=== PATIENT | female | born 1975 | race Caucasian/White ===

== ENCOUNTER 2021-03-05 12:12 | Inpatient (IN) | payer OTHER ==
[~2021-03-05] VITALS: Ht 160 cm; Wt 78.5 kg
[~2021-03-05 12:12] MED LIST: AMLODIPINE BESYL5 MG PO; ASPIRIN EC81 MG PO; ASPIRIN325 MG PO; BASAGLAR K100 UNIT/1 SC; CATAPRES 0.1MG0.1 MG PO; CEFUROXIME250 MG PO; CLEOCIN HCL300 MG PO; DULOXETINE HCL30 MG PO; FERROUS GLUCON324 M1 PO; GABAPENTIN800 MG PO; HUMALOG 10100 UNITS/ SC; HUMALOG100 UNIT/1 SC; HUMALOG100 UNIT/1 SQ; KLONOPIN TAB 00.5 MG PO; LANTUS INS100 UTS/M1 SC; LEVAQUIN750 MG PO; LISINOPRIL2.5 MG PO; LISINOPRIL40 MG PO; LOVENOX40 MG/0.4 SQ; LYRICA150 MG PO; METHADONE HCL T10 MG PO; MS CONTIN TAB S15 MG PO; NEURONTIN 400400 MG PO; NORCO 7.5-3251 EACH PO; OXYCODONE HCL5 MG PO; PERCOCET 10-321 EACH PO; PERCOCET 5/325 T1 EA PO; PHENERGAN 25 MG25 M1 PO; POVIDONE-IOD28.35 GM TOP; PROTONIX 40 MG40 M1 PO; PROTONIX40 MG PO; ROCEPHIN IM/I2000 MG IV; TIZANIDINE HCL4 MG PO; VANCOMYCIN HCL1 GM IV; VANCOMYCIN2 GM/20 ML IV; ZANAFLEX 4 MG TA4 MG PO; ZESTRIL40 MG PO; ZYVOX600 MG PO
[2021-03-05 13:55] LABS: HEMOGLOBIN 12.7 gm/dl (12.3-15.3); RED BLOOD COUNT 4.63 M/UL (4.00-5.10); WHITE BLOOD COUNT 10.1 K/UL (4.5-11.0)
[2021-03-05 14:03] LABS: BUN/CREATININE RATIO 14 (0-10)
[2021-03-06] MEDS ORDERED: LYRICA300 MG PO (00:39)
[2021-03-06] MEDS ORDERED: KLONOPIN0.5 MG PO (00:40)
[2021-03-06] MEDS ORDERED: AMLODIPINE BESYL5 MG PO (07:06)
[2021-03-06] MEDS ORDERED: ATORVASTATIN CA10 MG PO (07:06)
[2021-03-06] MEDS ORDERED: HYDROXYZINE PAM25 MG PO (07:07)
[2021-03-06 07:19] LABS: HEMOGLOBIN 10.3 gm/dl (12.3-15.3); RED BLOOD COUNT 3.81 M/UL (4.00-5.10); WHITE BLOOD COUNT 6.6 K/UL (4.5-11.0)
[2021-03-06 07:43] LABS: BUN/CREATININE RATIO 16 (0-10)
[2021-03-07 06:33] LABS: HEMOGLOBIN 10.9 gm/dl (12.3-15.3); WHITE BLOOD COUNT 6.5 K/UL (4.5-11.0)
[2021-03-07 06:51] LABS: BUN/CREATININE RATIO 23 (0-10)
[2021-03-08 08:55] LABS: HEMOGLOBIN 10.9 gm/dl (12.3-15.3); RED BLOOD COUNT 3.99 M/UL (4.00-5.10)
[2021-03-08 09:12] LABS: BUN/CREATININE RATIO 21 (0-10)
[2021-03-09 06:50] LABS: HEMOGLOBIN 11.8 gm/dl (12.3-15.3); RED BLOOD COUNT 4.33 M/UL (4.00-5.10); WHITE BLOOD COUNT 7.5 K/UL (4.5-11.0)
[2021-03-09 06:57] LABS: BUN/CREATININE RATIO 20 (0-10)
[2021-03-10 06:40] LABS: HEMOGLOBIN 12.1 gm/dl (12.3-15.3); RED BLOOD COUNT 4.42 M/UL (4.00-5.10)
[2021-03-10 06:52] LABS: WHITE BLOOD COUNT 9.4 K/UL (4.5-11.0)
[2021-03-10 07:06] LABS: BUN/CREATININE RATIO 21 (0-10)
[2021-03-10] MEDS ORDERED: ZYVOX600 MG PO (14:08)
== END 2021-03-10 18:52 | disposition home or self-care (01) | DRG 638 ==
LOC: ER1 12:12 → CDU 16:08 → M/S 16:08
PROVIDERS: Internal Medicine; Physician Assistant; Physician Assistant Medical; ADMIT Internal Medicine
DX: E11.621 Type 2 diabetes mellitus with foot ulcer (principal); M86.8X7 Other osteomyelitis, ankle and foot; L03.115 Cellulitis of right lower limb; E11.69 Type 2 diabetes mellitus with other specified complication; Z20.822 Contact with and (suspected) exposure to COVID-19; E11.40 Type 2 diabetes mellitus with diabetic neuropathy, unspecified; G89.4 Chronic pain syndrome; F41.9 Anxiety disorder, unspecified; E78.5 Hyperlipidemia, unspecified; I10 Essential (primary) hypertension; Z79.4 Long term (current) use of insulin; Z91.14 Patient's other noncompliance with medication regimen; Z99.3 Dependence on wheelchair; Z90.49 Acquired absence of other specified parts of digestive tract; Z98.51 Tubal ligation status; Z89.431 Acquired absence of right foot; Z82.0 Family history of epilepsy and other diseases of the nervous system; Z88.6 Allergy status to analgesic agent; Z88.8 Allergy status to other drugs, medicaments and biological substances
CPT/HCPCS: 36415; 73630; 73718; 80048; 80053; 80202; 81001; 82962; 83735; 85025; 85027; 85652; 86140; 87040; 93925; 96374; 96375; 99285; J1170; J1650; J2185; J2405; J2543; J3370; J7070; Q0177; U0002

== ENCOUNTER 2021-03-29 19:48 | Inpatient (IN) | payer OTHER ==
[~2021-03-29] VITALS: Ht 160 cm; Wt 85.3 kg
[~2021-03-29 19:48] MED LIST changes: +ATORVASTATIN CA10 MG PO; -HUMALOG 10100 UNITS/ SC; +HYDROXYZINE PAM25 MG PO; +KLONOPIN0.5 MG PO; -LISINOPRIL40 MG PO; +LYRICA300 MG PO
[2021-03-29 20:28] LABS: HEMOGLOBIN 10.5 gm/dl (12.3-15.3); RED BLOOD COUNT 3.71 M/UL (4.00-5.10); WHITE BLOOD COUNT 24.6 K/UL (4.5-11.0)
[2021-03-30] MEDS ORDERED: LISINOPRIL10 MG PO (03:29)
[2021-03-30 07:02] LABS: ACINETOBACTER BAUMANNII Not Detected (Negative); CANDIDA ALBICANS Not Detected (Negative); CANDIDA KRUSEI Not Detected (Negative); CANDIDA TROPICALIS Not Detected (Negative); ENTEROCOCCUS Not Detected (Negative); HAEMOPHILUS INFLUENZAE Not Detected (Negative); KLEBSIELLA OXYTOCA Not Detected (Negative); KLEBSIELLA PNEUMONIAE Not Detected (Negative); KPC-CARBAPENEM-RESISTANCE GENE Not Detected (Negative); PROTEUS Not Detected (Negative); PSEUDOMONAS AERUGINOSA Not Detected (Negative); SERRATIA MARCESANS Not Detected (Negative); STAPHYLOCOCCUS Not Detected (Negative); STAPHYLOCOCCUS AUREUS Not Detected (Negative); STREP AGALACTIAE (GROUP B) Not Detected (Negative); STREP PYOGENES (GROUP A) Not Detected (Negative); STREPTOCOCCUS Not Detected (Negative); mecA (METHICILLIN RESIST GENE Not Detected (Negative); vanA/B (VANCOMYCIN RESIST GENE Not Detected (Negative)
[2021-03-30 08:39] LABS: ESCHERICHIA COLI DETECTED (Negative)
[2021-03-30] MEDS ORDERED: NOVOLOG FL100 UNIT/1 SQ (10:06)
[2021-03-30 10:19] LABS: HEMOGLOBIN 11.2 gm/dl (12.3-15.3); RED BLOOD COUNT 4.06 M/UL (4.00-5.10); WHITE BLOOD COUNT 24.6 K/UL (4.5-11.0)
[2021-03-30] MEDS ORDERED: LEVEMIR FL100 UNIT/1 SQ (10:41)
[2021-03-30] MEDS ORDERED: TIZANIDINE HCL2 MG PO (10:43)
[2021-03-30] MEDS ORDERED: IBU-200200 MG PO (10:55)
[2021-03-30] MEDS ORDERED: PRENATAL FORMU1 EAC2 PO (10:55)
[2021-03-31 07:24] LABS: RED BLOOD COUNT 4.01 M/UL (4.00-5.10); WHITE BLOOD COUNT 22.9 K/UL (4.5-11.0)
[2021-04-01 06:36] LABS: WHITE BLOOD COUNT 18.4 K/UL (4.5-11.0)
[2021-04-01 06:37] LABS: RED BLOOD COUNT 4.73 M/UL (4.00-5.10)
[2021-04-02 07:39] LABS: HEMOGLOBIN 10.7 gm/dl (12.3-15.3); RED BLOOD COUNT 3.87 M/UL (4.00-5.10); WHITE BLOOD COUNT 24.3 K/UL (4.5-11.0)
--- NOTE | 2021-04-02 19:07 | NUR ---
1500 Bladder scan done as ordered, 599ml noted. Patient got up to [facility] to urinate, 750ml voided. Scanned the bladder again, 0ml noted.
[2021-04-03 05:59] LABS: BUN/CREATININE RATIO 29 (0-10)
[2021-04-04 05:29] LABS: HEMOGLOBIN 11.6 gm/dl (12.3-15.3); RED BLOOD COUNT 4.15 M/UL (4.00-5.10); WHITE BLOOD COUNT 20.9 K/UL (4.5-11.0)
[2021-04-04 06:24] LABS: BUN/CREATININE RATIO 23 (0-10)
--- NOTE | 2021-04-04 17:59 | NUR ---
dressing changed to right foot per doctor orders at this time
--- NOTE | 2021-04-04 18:43 | NUR ---
Patient refused sodium bicarb fluids. Patient states "its making me swell and puff up". Dr. Chapman on floor and notified. No new orders.
[2021-04-05 08:45] LABS: HEMOGLOBIN 9.9 gm/dl (12.3-15.3)
[2021-04-05 08:46] LABS: RED BLOOD COUNT 3.6 M/UL (4.00-5.10); WHITE BLOOD COUNT 14.8 K/UL (4.5-11.0)
[2021-04-05 08:59] LABS: BUN/CREATININE RATIO 15 (0-10)
--- NOTE | 2021-04-05 18:39 | NUR ---
PATIENTS DRESSING CHANGE TO BILATERAL FEET DONE AT THIS TIME PER MD ORDER
[2021-04-06 06:59] LABS: HEMOGLOBIN 10.1 gm/dl (12.3-15.3); RED BLOOD COUNT 3.7 M/UL (4.00-5.10); WHITE BLOOD COUNT 13.6 K/UL (4.5-11.0)
--- NOTE | 2021-04-07 04:16 | NUR ---
BILATERAL DRESSINGS CHANGED WITH GAUZE WRAP AND PARISH WRAPS
[2021-04-07 08:10] LABS: HEMOGLOBIN 9.4 gm/dl (12.3-15.3); RED BLOOD COUNT 3.54 M/UL (4.00-5.10); WHITE BLOOD COUNT 13.9 K/UL (4.5-11.0)
[2021-04-07] MEDS ORDERED: FAMOTIDINE20 MG PO (19:46)
[2021-04-07] MEDS ORDERED: FIRST AID ANT28.4 G1 TOP (19:46)
[2021-04-07] MEDS ORDERED: FLORANEX GRANU1 EACH PO (19:46)
[2021-04-07] MEDS ORDERED: PERCOCET 5-3251 EACH PO (19:49)
--- NOTE | 2021-04-07 20:18 | NUR ---
AT 1930 PATIENT WALKED INTO HALLWAY. SPOKE TO PROVIDER AND WENT AMA. IV AND picc REMOVED.
== END 2021-04-07 19:53 | disposition left against medical advice (07) | DRG 853 ==
LOC: ER1 19:48 → CDU 21:31 → M/S 21:31
PROVIDERS: Emergency Medicine; Internal Medicine; Internal Medicine Nephrology; Physician Assistant; Podiatrist Foot & Ankle Surgery; ADMIT Internal Medicine
PROC: 0QBN0Z2 Excision of Right Metatarsal, Sesamoid Bone(s) 1st Toe, Open Approach (ICD-10-PCS; 2021-03-30)
PROC: 0JBR0ZZ Excision of Left Foot Subcutaneous Tissue and Fascia, Open Approach (ICD-10-PCS; 2021-03-30)
PROC: 0JBQ0ZZ Excision of Right Foot Subcutaneous Tissue and Fascia, Open Approach (ICD-10-PCS; 2021-03-30)
PROC: 0QTN0ZZ Resection of Right Metatarsal, Open Approach (ICD-10-PCS; principal; 2021-03-30 09:30)
PROC: 02HV33Z Insertion of Infusion Device into Superior Vena Cava, Percutaneous Approach (ICD-10-PCS; 2021-04-04)
PROC: B548ZZA Ultrasonography of Superior Vena Cava, Guidance (ICD-10-PCS; 2021-04-04)
PROC: 02PYX3Z Removal of Infusion Device from Great Vessel, External Approach (ICD-10-PCS; 2021-04-07)
DX: A41.51 Sepsis due to Escherichia coli [E. coli] (principal); N17.0 Acute kidney failure with tubular necrosis; M86.8X7 Other osteomyelitis, ankle and foot; Z20.822 Contact with and (suspected) exposure to COVID-19; N17.9 Acute kidney failure, unspecified; F11.20 Opioid dependence, uncomplicated; E44.0 Moderate protein-calorie malnutrition; N13.30 Unspecified hydronephrosis; L03.115 Cellulitis of right lower limb; E87.1 Hypo-osmolality and hyponatremia; E87.2 Acidosis; E11.65 Type 2 diabetes mellitus with hyperglycemia; E11.628 Type 2 diabetes mellitus with other skin complications; G89.29 Other chronic pain; N28.89 Other specified disorders of kidney and ureter; I12.9 Hypertensive chronic kidney disease with stage 1 through stage 4 chronic kidney disease, or unspecified chronic kidney disease; R65.20 Severe sepsis without septic shock; E11.22 Type 2 diabetes mellitus with diabetic chronic kidney disease; N18.9 Chronic kidney disease, unspecified; D63.1 Anemia in chronic kidney disease; G89.4 Chronic pain syndrome; E86.0 Dehydration; E78.5 Hyperlipidemia, unspecified; F41.9 Anxiety disorder, unspecified; F32.9 Major depressive disorder, single episode, unspecified; K21.9 Gastro-esophageal reflux disease without esophagitis; E11.621 Type 2 diabetes mellitus with foot ulcer; Z79.4 Long term (current) use of insulin; Z89.422 Acquired absence of other left toe(s); Z89.421 Acquired absence of other right toe(s); Z91.14 Patient's other noncompliance with medication regimen; Z99.3 Dependence on wheelchair; Z90.49 Acquired absence of other specified parts of digestive tract; Z82.49 Family history of ischemic heart disease and other diseases of the circulatory system; Z68.33 Body mass index [BMI] 33.0-33.9, adult
CPT/HCPCS: 36415; 73630; 74150; 80048; 80053; 80202; 81001; 82550; 82553; 82570; 82607; 82746; 82803; 82962; 83036; 83540; 83550; 83605; 83690; 83735; 84100; 84133; 84156; 84300; 84484; 85025; 85027; 85045; 85652; 86140; 87040; 87070; 87077; 87086; 87150; 87186; 87205; 96365; 99284; C1751; G0378; J1100; J1335; J1644; J2001; J2185; J2250; J2270; J2370; J2405; J2543; J2704; J3010; J3370; J7030; J7070; J7120; P9047; Q0177; Q4133; U0002

== ENCOUNTER 2021-05-04 12:25 | Inpatient (IN) | payer OTHER ==
[~2021-05-04] VITALS: Ht 160 cm; Wt 90.3 kg
[~2021-05-04 12:25] MED LIST changes: +FAMOTIDINE20 MG PO; +FIRST AID ANT28.4 G1 TOP; +FLORANEX GRANU1 EACH PO; +IBU-200200 MG PO; +LEVEMIR FL100 UNIT/1 SQ; +LISINOPRIL10 MG PO; +NOVOLOG FL100 UNIT/1 SQ; +PERCOCET 5-3251 EACH PO; +PRENATAL FORMU1 EAC2 PO; +TIZANIDINE HCL2 MG PO
[2021-05-04 14:02] LABS: HEMOGLOBIN 9.3 gm/dl (12.3-15.3); RED BLOOD COUNT 3.45 M/UL (4.00-5.10); WHITE BLOOD COUNT 15.2 K/UL (4.5-11.0)
[2021-05-04 14:32] LABS: BUN/CREATININE RATIO 11 (0-10)
[2021-05-04] MEDS ORDERED: BENADRYL25 MG PO (18:07)
[2021-05-04] MEDS ORDERED: TYLENOL EXTRA500 MG PO (18:08)
[2021-05-05 08:07] LABS: HEMOGLOBIN 9.9 gm/dl (12.3-15.3); RED BLOOD COUNT 3.73 M/UL (4.00-5.10); WHITE BLOOD COUNT 12.1 K/UL (4.5-11.0)
[2021-05-05 13:19] LABS: ENTEROCOCCUS Not Detected (Negative); KPC-CARBAPENEM-RESISTANCE GENE Not Detected (Negative); STREP AGALACTIAE (GROUP B) Not Detected (Negative); STREPTOCOCCUS Not Detected (Negative); vanA/B (VANCOMYCIN RESIST GENE Not Detected (Negative)
[2021-05-05 13:20] LABS: ACINETOBACTER BAUMANNII Not Detected (Negative); CANDIDA ALBICANS Not Detected (Negative); CANDIDA KRUSEI Not Detected (Negative); CANDIDA TROPICALIS Not Detected (Negative); ESCHERICHIA COLI Not Detected (Negative); HAEMOPHILUS INFLUENZAE Not Detected (Negative); KLEBSIELLA OXYTOCA Not Detected (Negative); KLEBSIELLA PNEUMONIAE Not Detected (Negative); PROTEUS Not Detected (Negative); PSEUDOMONAS AERUGINOSA Not Detected (Negative); SERRATIA MARCESANS Not Detected (Negative); STREP PYOGENES (GROUP A) Not Detected (Negative)
[2021-05-05 14:41] LABS: mecA (METHICILLIN RESIST GENE DETECTED (Negative)
[2021-05-05 14:42] LABS: STAPHYLOCOCCUS DETECTED (Negative); STAPHYLOCOCCUS AUREUS DETECTED (Negative)
[2021-05-06 06:09] LABS: WHITE BLOOD COUNT 11.9 K/UL (4.5-11.0)
[2021-05-06 06:12] LABS: HEMOGLOBIN 7.8 gm/dl (12.3-15.3); RED BLOOD COUNT 2.91 M/UL (4.00-5.10)
[2021-05-07 08:20] LABS: BUN/CREATININE RATIO 12 (0-10)
[2021-05-07 10:55] LABS: HEMOGLOBIN 7.8 gm/dl (12.3-15.3); RED BLOOD COUNT 2.89 M/UL (4.00-5.10); WHITE BLOOD COUNT 13.3 K/UL (4.5-11.0)
[2021-05-08 09:02] LABS: HEMOGLOBIN 8.5 gm/dl (12.3-15.3); RED BLOOD COUNT 3.13 M/UL (4.00-5.10); WHITE BLOOD COUNT 13.8 K/UL (4.5-11.0)
[2021-05-08 09:23] LABS: BUN/CREATININE RATIO 13 (0-10)
[2021-05-09 10:44] LABS: HEMOGLOBIN 8.1 gm/dl (12.3-15.3); RED BLOOD COUNT 2.98 M/UL (4.00-5.10)
[2021-05-09 11:28] LABS: BUN/CREATININE RATIO 21 (0-10)
[2021-05-10 07:07] LABS: BUN/CREATININE RATIO 21 (0-10)
[2021-05-10 08:19] LABS: HEMOGLOBIN 8.6 gm/dl (12.3-15.3); RED BLOOD COUNT 3.14 M/UL (4.00-5.10); WHITE BLOOD COUNT 11.1 K/UL (4.5-11.0)
[2021-05-11 06:33] LABS: BUN/CREATININE RATIO 16 (0-10)
--- NOTE | 2021-05-11 06:42 | NUR ---
SPOKE WITH DAVI IN [facility] 26.1 STATED TO HOLD. DID NOT ADMINSTER. NOTIFIED ONCOMING RN.
[2021-05-12 07:36] LABS: HEMOGLOBIN 8.6 gm/dl (12.3-15.3); RED BLOOD COUNT 3.22 M/UL (4.00-5.10); WHITE BLOOD COUNT 9.1 K/UL (4.5-11.0)
[2021-05-12 08:17] LABS: BUN/CREATININE RATIO 18 (0-10)
[2021-05-13 05:09] LABS: BUN/CREATININE RATIO 17 (0-10)
[2021-05-15 08:01] LABS: HEMOGLOBIN 8.3 gm/dl (12.3-15.3); RED BLOOD COUNT 3.18 M/UL (4.00-5.10); WHITE BLOOD COUNT 8.3 K/UL (4.5-11.0)
[2021-05-15 08:41] LABS: BUN/CREATININE RATIO 19 (0-10)
[2021-05-16] MEDS ORDERED: HYDROCODON-ACE1 EAC4 PO (11:07)
[2021-05-16] MEDS ORDERED: ACETAMINOPHEN325 MG PO (11:07)
[2021-05-16] MEDS ORDERED: ZOFRAN 4 MG TAB4 MG PO (11:07)
[2021-05-16] MEDS ORDERED: NOVOLOG FL100 UNIT/1 SQ (11:07)
[2021-05-16] MEDS ORDERED: LEVEMIR FL100 UNIT/1 SQ (11:07)
[2021-05-16] MEDS ORDERED: PROTONIX 40 MG40 M1 PO (11:07)
[2021-05-16] MEDS ORDERED: UNASYN 3 GM VIAL3 GM IV (11:07)
[2021-05-16] MEDS ORDERED: LISINOPRIL10 MG PO (11:07)
[2021-05-16] MEDS ORDERED: VANCOMYCIN750 MG/151 IV (11:07)
[2021-05-16] MEDS ORDERED: THERAGRAN M TAB1 EA PO (11:12)
[2021-05-16] MEDS ORDERED: FERROUS GLUCON324 M2 PO (11:12)
== END 2021-05-16 15:49 | disposition swing bed (61) | DRG 871 ==
LOC: ER1 12:25 → CDU 16:32 → M/S 16:32 → MED SURG 4 05-10 12:30
PROVIDERS: Emergency Medicine; Internal Medicine Infectious Disease; Physician Assistant; Physician Assistant Medical; ADMIT Internal Medicine
PROC: 02HV33Z Insertion of Infusion Device into Superior Vena Cava, Percutaneous Approach (ICD-10-PCS; principal; 2021-05-04)
DX: A41.02 Sepsis due to Methicillin resistant Staphylococcus aureus (principal); A48.0 Gas gangrene; R65.21 Severe sepsis with septic shock; M86.8X7 Other osteomyelitis, ankle and foot; L97.429 Non-pressure chronic ulcer of left heel and midfoot with unspecified severity; L02.611 Cutaneous abscess of right foot; L03.116 Cellulitis of left lower limb; F11.20 Opioid dependence, uncomplicated; E11.52 Type 2 diabetes mellitus with diabetic peripheral angiopathy with gangrene; Z20.822 Contact with and (suspected) exposure to COVID-19; I10 Essential (primary) hypertension; E11.621 Type 2 diabetes mellitus with foot ulcer; E78.5 Hyperlipidemia, unspecified; K21.9 Gastro-esophageal reflux disease without esophagitis; E11.42 Type 2 diabetes mellitus with diabetic polyneuropathy; E11.69 Type 2 diabetes mellitus with other specified complication; E11.65 Type 2 diabetes mellitus with hyperglycemia; G89.4 Chronic pain syndrome; Z96.651 Presence of right artificial knee joint; D50.9 Iron deficiency anemia, unspecified; Z91.14 Patient's other noncompliance with medication regimen; Z79.4 Long term (current) use of insulin; Z88.1 Allergy status to other antibiotic agents; Z88.5 Allergy status to narcotic agent; Z90.49 Acquired absence of other specified parts of digestive tract; Z98.51 Tubal ligation status; Z89.421 Acquired absence of other right toe(s); Z98.890 Other specified postprocedural states
CPT/HCPCS: 36415; 73630; 73718; 80048; 80053; 80202; 82728; 82962; 83540; 83550; 83605; 83735; 84443; 85025; 85027; 85652; 86140; 87040; 87070; 87077; 87150; 87186; 87205; 96374; 96375; 99285; C1751; J0295; J1650; J1756; J2185; J2270; J2405; J2543; J3370; J7030; J7050; J7070; Q0177; U0002

== ENCOUNTER 2021-06-23 13:13 | Inpatient (IN) | payer OTHER ==
[~2021-06-23] VITALS: Ht 160 cm; Wt 90.3 kg
[~2021-06-23 13:13] MED LIST changes: +ACETAMINOPHEN325 MG PO; +BENADRYL25 MG PO; +FERROUS GLUCON324 M2 PO; +HYDROCODON-ACE1 EAC4 PO; +THERAGRAN M TAB1 EA PO; +TYLENOL EXTRA500 MG PO; +UNASYN 3 GM VIAL3 GM IV; +VANCOMYCIN750 MG/151 IV; +ZOFRAN 4 MG TAB4 MG PO
[2021-06-23 14:45] LABS: HEMOGLOBIN 10.1 gm/dl (12.3-15.3); RED BLOOD COUNT 3.67 M/UL (4.00-5.10); WHITE BLOOD COUNT 11.1 K/UL (4.5-11.0)
[2021-06-23 15:20] LABS: BUN/CREATININE RATIO 25 (0-10)
[2021-06-23] MEDS ORDERED: LEVEMIR100 UNIT/1 SQ (16:56)
[2021-06-23] MEDS ORDERED: MIRTAZAPINE15 MG PO (16:58)
[2021-06-23] MEDS ORDERED: PROTONIX 40 MG40 M1 PO (16:58)
[2021-06-23] MEDS ORDERED: HUMULIN R100 UNIT/1 SQ (16:58)
[2021-06-23] MEDS ORDERED: LISINOPRIL20 MG PO (16:58)
[2021-06-24 05:20] LABS: HEMOGLOBIN 9.7 gm/dl (12.3-15.3); RED BLOOD COUNT 3.58 M/UL (4.00-5.10); WHITE BLOOD COUNT 11.4 K/UL (4.5-11.0)
[2021-06-24 08:20] LABS: ACINETOBACTER BAUMANNII Not Detected (Negative); CANDIDA ALBICANS Not Detected (Negative); CANDIDA KRUSEI Not Detected (Negative); CANDIDA TROPICALIS Not Detected (Negative); ENTEROCOCCUS Not Detected (Negative); ESCHERICHIA COLI Not Detected (Negative); HAEMOPHILUS INFLUENZAE Not Detected (Negative); KLEBSIELLA OXYTOCA Not Detected (Negative); KLEBSIELLA PNEUMONIAE Not Detected (Negative); KPC-CARBAPENEM-RESISTANCE GENE Not Detected (Negative); PROTEUS Not Detected (Negative); PSEUDOMONAS AERUGINOSA Not Detected (Negative); SERRATIA MARCESANS Not Detected (Negative); STREP AGALACTIAE (GROUP B) Not Detected (Negative); STREP PYOGENES (GROUP A) Not Detected (Negative); STREPTOCOCCUS Not Detected (Negative); vanA/B (VANCOMYCIN RESIST GENE Not Detected (Negative)
[2021-06-24 09:35] LABS: STAPHYLOCOCCUS DETECTED (Negative); STAPHYLOCOCCUS AUREUS DETECTED (Negative); mecA (METHICILLIN RESIST GENE DETECTED (Negative)
--- NOTE | 2021-06-24 09:40 | NUR ---
EFRAIN HAD BLOOD SUGAR OF 408. PROVIDER NOTIFIED. PROVIDER ORDERED 10UNITS IVP OF REGULAR INSULINE AND 30 UNITS OF LANTUS SQ BID AT 0900 AND 1800. PATIENT HAD PULLED OUT HER IV. RESOURCE NURSE NOTIFIED AND NEW IV START ATEMPTED. AFTER SEVERAL ATEMPTS INCLUDING USING THE ULTRA SOUND MACHINE NO IV ACCESS WAS OBTAINED AT THIS TIME. PA FOR PROVIDER PRESENT. STATED HE WOULD TALK TO PROVIDER ABOUT SITUATION AND POSSIBLE LINE PLACEMENT FOR PATIENT TO OBTAIN NEEDED ABX. WILL CONTINUE TO MONITOR.
[2021-06-25 05:43] LABS: HEMOGLOBIN 9.1 gm/dl (12.3-15.3); RED BLOOD COUNT 3.36 M/UL (4.00-5.10); WHITE BLOOD COUNT 10.3 K/UL (4.5-11.0)
[2021-06-26 06:08] LABS: HEMOGLOBIN 9.2 gm/dl (12.3-15.3); RED BLOOD COUNT 3.38 M/UL (4.00-5.10); WHITE BLOOD COUNT 9.9 K/UL (4.5-11.0)
--- NOTE | 2021-06-27 18:09 | NUR ---
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 PT HAD NOT TOLD ME OR DR. MUSA ANYTHING ABOUT ANY KIND OF VISION LOSS, DR. MUSA AND I WENT IN TO LOOK AT THE PTS EYE. SHE HAD NO PUPIL REACATION IN THE LEFT EYE. DR. MUSA ASKED IF SHE WANTED TO BE SENT TO ANOTHER HOSPITAL BECAUSE WE DO NOT HAVE ENT COVERAGE. PT STATED THAT SHE WILL LET ME KNOW
[2021-06-28 06:39] LABS: HEMOGLOBIN 8.9 gm/dl (12.3-15.3); RED BLOOD COUNT 3.3 M/UL (4.00-5.10); WHITE BLOOD COUNT 9.6 K/UL (4.5-11.0)
[2021-06-29 02:57] LABS: HEMOGLOBIN 9.5 gm/dl (12.3-15.3); RED BLOOD COUNT 3.57 M/UL (4.00-5.10)
[2021-06-29 03:07] LABS: WHITE BLOOD COUNT 12.5 K/UL (4.5-11.0)
--- NOTE | 2021-06-29 04:55 | NUR ---
PATIENT CONTINUES TO PULL DRESSING AND UNWRAP IT FROM THE FOOT. PATIENT IS ALERT AND ORIENTED X3. DISCUSSED WITH PATIENT THE DANGER OF INFECTION AND THE NEED FOR LEAVING DRESSING IN PLACE. PATIENT VERBALIZED UNDERSTANDING AND CONTINUED TO REMOVE DRESSING THROUGH THE NIGHT FROM THE FOOT. WILL CONTINUE TO MONITOR PATIENT FOR CHANGES. CALL LIGHT IN REACH BED IN LOW POSITION AND SIDERAILS ELEVATED.
--- NOTE | 2021-06-29 18:32 | NUR ---
PATIENT REFUSES TO KEEP THE DRESSINGS TO FEET INTACT.
[2021-07-03 06:18] LABS: HEMOGLOBIN 9.5 gm/dl (12.3-15.3); RED BLOOD COUNT 3.48 M/UL (4.00-5.10); WHITE BLOOD COUNT 12.4 K/UL (4.5-11.0)
[2021-07-04 08:34] LABS: HEMOGLOBIN 9.7 gm/dl (12.3-15.3); RED BLOOD COUNT 3.62 M/UL (4.00-5.10); WHITE BLOOD COUNT 11.1 K/UL (4.5-11.0)
--- NOTE | 2021-07-05 02:23 | NUR ---
WOUND DRESSING CHANGE APPLIED NON ADHERANT DRESSING, 4X4S, GAUZE WRAPPTED DRESSING, TAPED. PT GIVEN MOREPHINE BEFORE DRESSING CHANGE. PT TOLERATED WELL.
[2021-07-05 04:28] LABS: HEMOGLOBIN 9.3 gm/dl (12.3-15.3); RED BLOOD COUNT 3.48 M/UL (4.00-5.10); WHITE BLOOD COUNT 9.5 K/UL (4.5-11.0)
[2021-07-06 06:03] LABS: HEMOGLOBIN 10.3 gm/dl (12.3-15.3); RED BLOOD COUNT 3.79 M/UL (4.00-5.10); WHITE BLOOD COUNT 13.9 K/UL (4.5-11.0)
--- NOTE | 2021-07-07 08:59 | NUR ---
PATIENT COMPLAINS OF FEELINGS OF FULLNESS IN EARS. NOTIFIED MD. NEW ORDER NOTED FOR DEBROX.
[2021-07-07 14:54] LABS: HEMOGLOBIN 9.3 gm/dl (12.3-15.3)
[2021-07-07 14:59] LABS: RED BLOOD COUNT 3.38 M/UL (4.00-5.10); WHITE BLOOD COUNT 9.4 K/UL (4.5-11.0)
[2021-07-08 07:08] LABS: HEMOGLOBIN 9.5 gm/dl (12.3-15.3); RED BLOOD COUNT 3.48 M/UL (4.00-5.10); WHITE BLOOD COUNT 8.2 K/UL (4.5-11.0)
[2021-07-09 05:53] LABS: HEMOGLOBIN 9.8 gm/dl (12.3-15.3); RED BLOOD COUNT 3.64 M/UL (4.00-5.10); WHITE BLOOD COUNT 6.5 K/UL (4.5-11.0)
[2021-07-10 05:10] LABS: HEMOGLOBIN 8.7 gm/dl (12.3-15.3); RED BLOOD COUNT 3.3 M/UL (4.00-5.10); WHITE BLOOD COUNT 7.1 K/UL (4.5-11.0)
[2021-07-10 05:50] LABS: BUN/CREATININE RATIO 18 (0-10)
[2021-07-11 05:53] LABS: HEMOGLOBIN 9.2 gm/dl (12.3-15.3); RED BLOOD COUNT 3.52 M/UL (4.00-5.10); WHITE BLOOD COUNT 6.7 K/UL (4.5-11.0)
[2021-07-11 06:31] LABS: BUN/CREATININE RATIO 19 (0-10)
--- NOTE | 2021-07-12 06:10 | NUR ---
DRESSING CHANGED AND WOUND CLEANED PATIENT TOLERATED WELL
[2021-07-12 06:31] LABS: HEMOGLOBIN 8.3 gm/dl (12.3-15.3); WHITE BLOOD COUNT 6.1 K/UL (4.5-11.0)
[2021-07-12 06:41] LABS: RED BLOOD COUNT 3.1 M/UL (4.00-5.10)
[2021-07-12 06:58] LABS: BUN/CREATININE RATIO 19 (0-10)
[2021-07-13 04:59] LABS: RED BLOOD COUNT 3.45 M/UL (4.00-5.10); WHITE BLOOD COUNT 6.1 K/UL (4.5-11.0)
[2021-07-14 03:28] LABS: HEMOGLOBIN 9.6 gm/dl (12.3-15.3); RED BLOOD COUNT 3.6 M/UL (4.00-5.10)
[2021-07-14 03:35] LABS: WHITE BLOOD COUNT 7.7 K/UL (4.5-11.0)
[2021-07-15 05:26] LABS: BUN/CREATININE RATIO 25 (0-10)
[2021-07-16 05:30] LABS: RED BLOOD COUNT 3.44 M/UL (4.00-5.10); WHITE BLOOD COUNT 5.9 K/UL (4.5-11.0)
[2021-07-16 06:09] LABS: BUN/CREATININE RATIO 22 (0-10)
--- NOTE | 2021-07-17 06:43 | NUR ---
PATIENT OBSERVED BY PCT CRUSHING PERCOCET ON BEDSIDE TABLE WITH STRAW. DAYSHIFT NURSE MADE AWARE.
[2021-07-17 10:33] LABS: HEMOGLOBIN 9.4 gm/dl (12.3-15.3); RED BLOOD COUNT 3.57 M/UL (4.00-5.10); WHITE BLOOD COUNT 5.5 K/UL (4.5-11.0)
[2021-07-17 11:02] LABS: BUN/CREATININE RATIO 23 (0-10)
[2021-07-18 04:24] LABS: HEMOGLOBIN 9.2 gm/dl (12.3-15.3); RED BLOOD COUNT 3.49 M/UL (4.00-5.10); WHITE BLOOD COUNT 6.3 K/UL (4.5-11.0)
[2021-07-19 06:35] LABS: HEMOGLOBIN 9.5 gm/dl (12.3-15.3); RED BLOOD COUNT 3.62 M/UL (4.00-5.10); WHITE BLOOD COUNT 6.8 K/UL (4.5-11.0)
[2021-07-20 06:50] LABS: HEMOGLOBIN 10.2 gm/dl (12.3-15.3); RED BLOOD COUNT 3.77 M/UL (4.00-5.10)
[2021-07-20 06:51] LABS: WHITE BLOOD COUNT 8.6 K/UL (4.5-11.0)
--- NOTE | 2021-07-25 16:21 | NUR ---
PT IS OFF THE UNIT WITH EMS AT [facility] DR APPT.
[2021-07-27 04:14] LABS: HEMOGLOBIN 8.9 gm/dl (12.3-15.3); RED BLOOD COUNT 3.25 M/UL (4.00-5.10); WHITE BLOOD COUNT 6.3 K/UL (4.5-11.0)
[2021-07-27] MEDS ORDERED: ARTIFICIAL TEAR15 M2 EYELF (12:01)
[2021-07-27] MEDS ORDERED: EAR DROPS15 ML EARBOTH (12:01)
[2021-07-27] MEDS ORDERED: LATANOPROST2.5 ML EYELF (12:01)
[2021-07-27] MEDS ORDERED: TIMOLOL MALEATE15 M1 EYELF (12:01)
[2021-07-27] MEDS ORDERED: ACETAZOLAMIDE250 MG PO (12:01)
[2021-07-27] MEDS ORDERED: BRIMONIDINE TAR15 ML EYELF (12:01)
[2021-07-27] MEDS ORDERED: LANTUS INS100 UTS/M1 SQ (12:01)
[2021-07-27] MEDS ORDERED: PATIENT'S OWN MEDICA EYELF (12:01)
[2021-07-27] MEDS ORDERED: TRUSOPT 2% OP S10 ML EYELF (12:01)
[2021-07-27] MEDS ORDERED: HUMALOG 10100 UNITS/ SC ×2 (12:01)
[2021-07-27] MEDS ORDERED: ISOPTO ATROPINE EYELF (12:01)
[2021-07-27] MEDS ORDERED: PERCOCET 5/325 T1 EA PO (12:02)
[2021-07-27] MEDS ORDERED: PREGABALIN75 MG PO (12:17)
[2021-07-27] MEDS ORDERED: SODIUM BICARBO650 M1 PO (12:19)
--- NOTE | 2021-07-27 17:36 | NUR ---
REPORT CALLED TO MARK AT [facility]. PATIENT WILL BE RECIEVING IV ANTIBIOTICS FOR 4 WEEKS AT [facility].
== END 2021-07-27 17:14 | DRG 872 ==
LOC: ER1 13:13 → CDU 15:38 → MED SURG 4 15:38 → CDU 17:27 → MED SURG 4 17:27
PROVIDERS: Internal Medicine; Physician Assistant; Preventive Medicine Occupational Medicine; ADMIT Internal Medicine Infectious Disease
PROC: 02HV33Z Insertion of Infusion Device into Superior Vena Cava, Percutaneous Approach (ICD-10-PCS; principal; 2021-06-24)
PROC: B24BZZ4 Ultrasonography of Heart with Aorta, Transesophageal (ICD-10-PCS; 2021-07-06)
DX: A41.02 Sepsis due to Methicillin resistant Staphylococcus aureus (principal); N17.9 Acute kidney failure, unspecified; Z20.822 Contact with and (suspected) exposure to COVID-19; H05.019 Cellulitis of unspecified orbit; H40.212 Acute angle-closure glaucoma, left eye; M86.171 Other acute osteomyelitis, right ankle and foot; A52.16 Charcot's arthropathy (tabetic); L03.115 Cellulitis of right lower limb; N30.00 Acute cystitis without hematuria; F11.20 Opioid dependence, uncomplicated; R65.20 Severe sepsis without septic shock; H54.62 Unqualified visual loss, left eye, normal vision right eye; E11.42 Type 2 diabetes mellitus with diabetic polyneuropathy; E11.319 Type 2 diabetes mellitus with unspecified diabetic retinopathy without macular edema; E66.9 Obesity, unspecified; I10 Essential (primary) hypertension; G89.4 Chronic pain syndrome; F41.9 Anxiety disorder, unspecified; E78.5 Hyperlipidemia, unspecified; K21.9 Gastro-esophageal reflux disease without esophagitis; D64.9 Anemia, unspecified; E11.65 Type 2 diabetes mellitus with hyperglycemia; E11.69 Type 2 diabetes mellitus with other specified complication; Z79.4 Long term (current) use of insulin; Z91.14 Patient's other noncompliance with medication regimen; Z89.422 Acquired absence of other left toe(s); Z89.421 Acquired absence of other right toe(s); Z90.49 Acquired absence of other specified parts of digestive tract; Z98.51 Tubal ligation status; Z98.890 Other specified postprocedural states; Z88.6 Allergy status to analgesic agent; Z82.49 Family history of ischemic heart disease and other diseases of the circulatory system; Z83.3 Family history of diabetes mellitus; Z68.35 Body mass index [BMI] 35.0-35.9, adult
CPT/HCPCS: ECHO; 36415; 36600; 70481; 71045; 73620; 80048; 80053; 80202; 81001; 82550; 82553; 82803; 82962; 83605; 83690; 83735; 83874; 84484; 85025; 85027; 85652; 86140; 87040; 87070; 87077; 87086; 87150; 87186; 87205; 93306; 93970; 96374; 96375; 97110; 97110-GP-CQ; 97161; 97530; 97530-GP-CQ; 99284; A6212; C1751; J1170; J1650; J2185; J2270; J2405; J2543; J3370; J7030; J7070; Q0177; Q9967; U0002

== ENCOUNTER 2021-10-15 14:11 | Inpatient (IN) | payer OTHER ==
[~2021-10-15] VITALS: Ht 160 cm; Wt 85.7 kg
[~2021-10-15 14:11] MED LIST changes: +ACETAZOLAMIDE250 MG PO; +ARTIFICIAL TEAR15 M2 EYELF; +BRIMONIDINE TAR15 ML EYELF; +EAR DROPS15 ML EARBOTH; +HUMALOG 10100 UNITS/ SC; +HUMULIN R100 UNIT/1 SQ; -HYDROXYZINE PAM25 MG PO; +ISOPTO ATROPINE EYELF; +LANTUS INS100 UTS/M1 SQ; +LATANOPROST2.5 ML EYELF; +LEVEMIR100 UNIT/1 SQ; +LISINOPRIL20 MG PO; +PATIENT'S OWN MEDICA EYELF; +PREGABALIN75 MG PO; +SODIUM BICARBO650 M1 PO; +TIMOLOL MALEATE15 M1 EYELF; +TRUSOPT 2% OP S10 ML EYELF
[2021-10-15 16:23] LABS: HEMOGLOBIN 10.7 gm/dl (12.3-15.3); RED BLOOD COUNT 3.8 M/UL (4.00-5.10); WHITE BLOOD COUNT 15.9 K/UL (4.5-11.0)
[2021-10-16 06:25] LABS: HEMOGLOBIN 9.2 gm/dl (12.3-15.3)
[2021-10-16 06:26] LABS: RED BLOOD COUNT 3.29 M/UL (4.00-5.10)
[2021-10-16] MEDS ORDERED: HYDROXYZINE HCL25 MG PO (07:07)
[2021-10-16] MEDS ORDERED: HUMALOG100 UNIT/1 SC (07:55)
[2021-10-16] MEDS ORDERED: MIRTAZAPINE15 MG PO (16:58)
[2021-10-16] MEDS ORDERED: GABAPENTIN800 MG PO (19:08)
[2021-10-16] MEDS ORDERED: ASPIRIN EC81 MG PO (19:09)
[2021-10-16] MEDS ORDERED: LANTUS100 UNIT/1 SQ (19:11)
[2021-10-17 06:37] LABS: HEMOGLOBIN 9.2 gm/dl (12.3-15.3); RED BLOOD COUNT 3.26 M/UL (4.00-5.10)
[2021-10-17 06:38] LABS: WHITE BLOOD COUNT 8.2 K/UL (4.5-11.0)
[2021-10-18 06:59] LABS: WHITE BLOOD COUNT 7.7 K/UL (4.5-11.0)
[2021-10-18 07:00] LABS: RED BLOOD COUNT 3.91 M/UL (4.00-5.10)
[2021-10-19 06:17] LABS: HEMOGLOBIN 9.6 gm/dl (12.3-15.3); WHITE BLOOD COUNT 7.5 K/UL (4.5-11.0)
[2021-10-19 06:36] LABS: BUN/CREATININE RATIO 21 (0-10)
[2021-10-19 06:41] LABS: RED BLOOD COUNT 3.44 M/UL (4.00-5.10)
[2021-10-21 06:26] LABS: HEMOGLOBIN 9.3 gm/dl (12.3-15.3); RED BLOOD COUNT 3.33 M/UL (4.00-5.10); WHITE BLOOD COUNT 6.9 K/UL (4.5-11.0)
[2021-10-21 06:59] LABS: BUN/CREATININE RATIO 23 (0-10)
--- NOTE | 2021-10-21 12:30 | NUR ---
1225- AQUACEL DRESSING REMOVED AT THIS TIME BY REBECCA ALEJANDRO. ORDERS TO LEAVE SURGICAL INCISION OPEN TO AIR.
[2021-10-22 06:27] LABS: BUN/CREATININE RATIO 25 (0-10)
[2021-10-23 11:01] LABS: HEMOGLOBIN 9.7 gm/dl (12.3-15.3); RED BLOOD COUNT 3.49 M/UL (4.00-5.10)
[2021-10-23 11:23] LABS: BUN/CREATININE RATIO 32 (0-10)
[2021-10-24 05:42] LABS: HEMOGLOBIN 10.1 gm/dl (12.3-15.3); RED BLOOD COUNT 3.6 M/UL (4.00-5.10); WHITE BLOOD COUNT 6.8 K/UL (4.5-11.0)
[2021-10-24 06:14] LABS: BUN/CREATININE RATIO 27 (0-10)
[2021-10-25 08:52] LABS: RED BLOOD COUNT 3.59 M/UL (4.00-5.10); WHITE BLOOD COUNT 7.1 K/UL (4.5-11.0)
[2021-10-25 09:35] LABS: BUN/CREATININE RATIO 35 (0-10)
[2021-10-25] MEDS ORDERED: DAPTOMYCIN (11:18)
[2021-10-26 03:16] LABS: HEMOGLOBIN 9.9 gm/dl (12.3-15.3); RED BLOOD COUNT 3.52 M/UL (4.00-5.10); WHITE BLOOD COUNT 7.5 K/UL (4.5-11.0)
[2021-10-27 03:10] LABS: RED BLOOD COUNT 3.61 M/UL (4.00-5.10); WHITE BLOOD COUNT 9.1 K/UL (4.5-11.0)
== END 2021-10-27 13:13 | disposition swing bed (61) | DRG 854 ==
LOC: ER1 14:11 → CDU 17:34 → M/S 17:34
PROVIDERS: Emergency Medicine; Internal Medicine; ADMIT Internal Medicine
PROC: 3E03329 Introduction of Other Anti-infective into Peripheral Vein, Percutaneous Approach (ICD-10-PCS; principal; 2021-10-15)
PROC: 0JBQ0ZZ Excision of Right Foot Subcutaneous Tissue and Fascia, Open Approach (ICD-10-PCS; 2021-10-19)
PROC: 0J9Q0ZZ Drainage of Right Foot Subcutaneous Tissue and Fascia, Open Approach (ICD-10-PCS; 2021-10-19)
DX: A41.02 Sepsis due to Methicillin resistant Staphylococcus aureus (principal); F11.20 Opioid dependence, uncomplicated; Z20.822 Contact with and (suspected) exposure to COVID-19; E87.1 Hypo-osmolality and hyponatremia; N30.00 Acute cystitis without hematuria; M86.671 Other chronic osteomyelitis, right ankle and foot; L03.115 Cellulitis of right lower limb; I96 Gangrene, not elsewhere classified; E11.52 Type 2 diabetes mellitus with diabetic peripheral angiopathy with gangrene; F41.9 Anxiety disorder, unspecified; E11.65 Type 2 diabetes mellitus with hyperglycemia; E11.40 Type 2 diabetes mellitus with diabetic neuropathy, unspecified; I10 Essential (primary) hypertension; E78.5 Hyperlipidemia, unspecified; E11.621 Type 2 diabetes mellitus with foot ulcer; L97.519 Non-pressure chronic ulcer of other part of right foot with unspecified severity; L97.529 Non-pressure chronic ulcer of other part of left foot with unspecified severity; E88.09 Other disorders of plasma-protein metabolism, not elsewhere classified; R53.81 Other malaise; E11.610 Type 2 diabetes mellitus with diabetic neuropathic arthropathy; E86.1 Hypovolemia; H40.20X0 Unspecified primary angle-closure glaucoma, stage unspecified; B96.89 Other specified bacterial agents as the cause of diseases classified elsewhere; E66.9 Obesity, unspecified; K21.9 Gastro-esophageal reflux disease without esophagitis; F32.A Depression, unspecified; A41.51 Sepsis due to Escherichia coli [E. coli]; E11.51 Type 2 diabetes mellitus with diabetic peripheral angiopathy without gangrene; Z91.14 Patient's other noncompliance with medication regimen; Z88.8 Allergy status to other drugs, medicaments and biological substances; Z79.899 Other long term (current) drug therapy; Z79.82 Long term (current) use of aspirin; Z89.432 Acquired absence of left foot; Z89.431 Acquired absence of right foot; Z68.33 Body mass index [BMI] 33.0-33.9, adult
CPT/HCPCS: 0240U; 36415; 71045; 73630; 73721; 80048; 80053; 80202; 81001; 82009; 82550; 82553; 82803; 82962; 83036; 83605; 83690; 83735; 83880; 84100; 84484; 85025; 85027; 85610; 85652; 85730; 86140; 87040; 87070; 87077; 87086; 87186; 87205; 93005; 96374; 96375; 99285; C1751; J0696; J0878; J1650; J2185; J2270; J3370; J7030; J7070; U0002

== ENCOUNTER → 2021-11-16 | Outpatient (CLI) | payer OTHER ==
[~2021-11-16] MED LIST changes: +DAPTOMYCIN; +HYDROXYZINE HCL25 MG PO; +LANTUS100 UNIT/1 SQ; +MIRTAZAPINE15 MG PO
== END ==
LOC: OPSV 12:00
DX: M86.671 Other chronic osteomyelitis, right ankle and foot (principal); L97.519 Non-pressure chronic ulcer of other part of right foot with unspecified severity; A52.16 Charcot's arthropathy (tabetic); S91.302D Unspecified open wound, left foot, subsequent encounter
CPT/HCPCS: G0463

== ENCOUNTER 2022-01-30 05:11 | Inpatient (IN) | payer OTHER ==
[~2022-01-30] VITALS: Ht 160 cm; Wt 99.3 kg
[~2022-01-30 05:11] MED LIST changes: -LANTUS100 UNIT/1 SQ; -LISINOPRIL20 MG PO; +LISINOPRIL40 MG PO; +NOVOLOG FL100 UNIT/1 INJ
[2022-01-30 06:31] LABS: HEMOGLOBIN 11.4 gm/dl (12.3-15.3); RED BLOOD COUNT 4.05 M/UL (4.00-5.10); WHITE BLOOD COUNT 13.5 K/UL (4.5-11.0)
[2022-01-30 06:49] LABS: BUN/CREATININE RATIO 29 (0-10)
[2022-01-30] MEDS ORDERED: OXYCODONE-ACET1 EACH PO (12:24)
[2022-01-30] MEDS ORDERED: TIZANIDINE HCL4 MG PO (12:25)
[2022-02-01 05:40] LABS: HEMOGLOBIN 9.6 gm/dl (12.3-15.3); WHITE BLOOD COUNT 6.7 K/UL (4.5-11.0)
[2022-02-01 05:41] LABS: RED BLOOD COUNT 3.39 M/UL (4.00-5.10)
[2022-02-02] MEDS ORDERED: SOLIQUA 100 UNIT3 ML SQ (12:25)
[2022-02-03 07:50] LABS: HEMOGLOBIN 10.4 gm/dl (12.3-15.3); RED BLOOD COUNT 3.74 M/UL (4.00-5.10); WHITE BLOOD COUNT 6.9 K/UL (4.5-11.0)
[2022-02-05 07:39] LABS: HEMOGLOBIN 10.3 gm/dl (12.3-15.3); RED BLOOD COUNT 3.74 M/UL (4.00-5.10); WHITE BLOOD COUNT 6.4 K/UL (4.5-11.0)
--- NOTE | 2022-02-06 04:42 | NUR ---
LAB REPORTED A POTASSIUM OF 5.8, MADE AWARE, NEW ORDERS NOTED.
--- NOTE | 2022-02-06 18:46 | NUR ---
RIGHT FOOT DRESSING CHANGED WITH DAKIN SOLUTION, 4X4 GAUZE AND PARISH WRAP. NO SIGNS OF INFECTION. PATIENT TOLERATED WELL.
[2022-02-07 06:23] LABS: HEMOGLOBIN 10.5 gm/dl (12.3-15.3); RED BLOOD COUNT 3.77 M/UL (4.00-5.10); WHITE BLOOD COUNT 5.9 K/UL (4.5-11.0)
[2022-02-08 06:29] LABS: HEMOGLOBIN 10.8 gm/dl (12.3-15.3); RED BLOOD COUNT 3.88 M/UL (4.00-5.10); WHITE BLOOD COUNT 5.3 K/UL (4.5-11.0)
[2022-02-10] MEDS ORDERED: REMERON 15 MG T15 MG PO (12:59)
[2022-02-10] MEDS ORDERED: JARDIANCE10 MG PO (12:59)
[2022-02-10] MEDS ORDERED: MINOCIN CAPSULE50 MG PO ×2 (12:59→17:00)
[2022-02-10] MEDS ORDERED: LEVEMIR FL100 UNIT/1 SQ (13:03)
[2022-02-10] MEDS ORDERED: OXYCODONE-ACET1 EACH PO (15:41)
== END 2022-02-10 17:26 | disposition home health service (06) | DRG 74 ==
LOC: ER1 05:11 → CDU 06:18 → MED SURG 4 06:18 → CDU 08:01 → MED SURG 4 16:28
PROVIDERS: Internal Medicine; Physician Assistant; ADMIT Internal Medicine Infectious Disease
DX: E11.610 Type 2 diabetes mellitus with diabetic neuropathic arthropathy (principal); N17.9 Acute kidney failure, unspecified; M86.671 Other chronic osteomyelitis, right ankle and foot; E11.51 Type 2 diabetes mellitus with diabetic peripheral angiopathy without gangrene; E11.69 Type 2 diabetes mellitus with other specified complication; E78.5 Hyperlipidemia, unspecified; Z20.822 Contact with and (suspected) exposure to COVID-19; E66.9 Obesity, unspecified; F19.10 Other psychoactive substance abuse, uncomplicated; I12.9 Hypertensive chronic kidney disease with stage 1 through stage 4 chronic kidney disease, or unspecified chronic kidney disease; K21.9 Gastro-esophageal reflux disease without esophagitis; E11.319 Type 2 diabetes mellitus with unspecified diabetic retinopathy without macular edema; G89.29 Other chronic pain; E87.5 Hyperkalemia; E11.65 Type 2 diabetes mellitus with hyperglycemia; E11.621 Type 2 diabetes mellitus with foot ulcer; Z79.4 Long term (current) use of insulin; Z79.01 Long term (current) use of anticoagulants; Z79.82 Long term (current) use of aspirin; Z91.14 Patient's other noncompliance with medication regimen; Z98.51 Tubal ligation status; Z88.8 Allergy status to other drugs, medicaments and biological substances; Z88.6 Allergy status to analgesic agent; Z90.49 Acquired absence of other specified parts of digestive tract; Z98.890 Other specified postprocedural states; Z82.0 Family history of epilepsy and other diseases of the nervous system; Z83.3 Family history of diabetes mellitus; Z68.39 Body mass index [BMI] 39.0-39.9, adult
CPT/HCPCS: 36415; 73630; 73718; 80048; 80053; 80202; 82962; 83605; 83735; 83880; 84100; 84132; 85025; 85027; 85610; 85652; 85730; 86140; 87040; 87070; 87205; 96374; 96375; 97110; 97116-GP-CQ; 97161; 97165; 99284; J1335; J1650; J2270; J2405; J3370; J7070; P9047

== ENCOUNTER 2022-02-12 22:09 | Emergency (ER) | payer OTHER ==
[~2022-02-12 22:09] MED LIST changes: +JARDIANCE10 MG PO; +MINOCIN CAPSULE50 MG PO; +OXYCODONE-ACET1 EACH PO; +REMERON 15 MG T15 MG PO; +SOLIQUA 100 UNIT3 ML SQ
[2022-02-13 02:42] LABS: HEMOGLOBIN 11.5 gm/dl (12.3-15.3); RED BLOOD COUNT 4.08 M/UL (4.00-5.10)
[2022-02-13 03:26] LABS: BUN/CREATININE RATIO 43 (0-10)
[2022-02-13] MEDS ORDERED: PHENERGAN 12.12.5 MG PR (05:22)
[2022-02-13] MEDS ORDERED: ZOFRAN ODT 4 MG4 MG PO (05:22)
== END 2022-02-13 05:42 | disposition home or self-care (01) ==
LOC: ER1 22:09
PROVIDERS: Physician Assistant
DX: E11.621 Type 2 diabetes mellitus with foot ulcer (principal); L97.519 Non-pressure chronic ulcer of other part of right foot with unspecified severity; R11.2 Nausea with vomiting, unspecified; E11.40 Type 2 diabetes mellitus with diabetic neuropathy, unspecified; E78.5 Hyperlipidemia, unspecified; E11.22 Type 2 diabetes mellitus with diabetic chronic kidney disease; I12.9 Hypertensive chronic kidney disease with stage 1 through stage 4 chronic kidney disease, or unspecified chronic kidney disease; N18.9 Chronic kidney disease, unspecified; Z88.8 Allergy status to other drugs, medicaments and biological substances; Z88.5 Allergy status to narcotic agent; Z89.411 Acquired absence of right great toe; Z89.421 Acquired absence of other right toe(s)
CPT/HCPCS: 73630; 80053; 83605; 85025; 85652; 86140; 87040; 96374; 96375; 99283; J2405

== ENCOUNTER 2022-02-13 09:26 | Inpatient (IN) | payer OTHER ==
[~2022-02-13] VITALS: Ht 160 cm; Wt 99.8 kg
[~2022-02-13 09:26] MED LIST changes: +PHENERGAN 12.12.5 MG PR; +ZOFRAN ODT 4 MG4 MG PO
[2022-02-13 13:37] LABS: HEMOGLOBIN 11.5 gm/dl (12.3-15.3); RED BLOOD COUNT 4.13 M/UL (4.00-5.10); WHITE BLOOD COUNT 11.5 K/UL (4.5-11.0)
[2022-02-14 06:02] LABS: HEMOGLOBIN 11.3 gm/dl (12.3-15.3); RED BLOOD COUNT 4.04 M/UL (4.00-5.10); WHITE BLOOD COUNT 9.2 K/UL (4.5-11.0)
[2022-02-14 06:58] LABS: BUN/CREATININE RATIO 40 (0-10)
[2022-02-15 06:30] LABS: HEMOGLOBIN 10.9 gm/dl (12.3-15.3); RED BLOOD COUNT 3.86 M/UL (4.00-5.10)
[2022-02-16 06:37] LABS: HEMOGLOBIN 11.4 gm/dl (12.3-15.3); RED BLOOD COUNT 4.12 M/UL (4.00-5.10); WHITE BLOOD COUNT 8.8 K/UL (4.5-11.0)
[2022-02-16 08:22] LABS: BUN/CREATININE RATIO 38 (0-10)
[2022-02-17 06:27] LABS: HEMOGLOBIN 11.5 gm/dl (12.3-15.3); RED BLOOD COUNT 4.05 M/UL (4.00-5.10); WHITE BLOOD COUNT 8.2 K/UL (4.5-11.0)
[2022-02-18 07:06] LABS: RED BLOOD COUNT 3.92 M/UL (4.00-5.10); WHITE BLOOD COUNT 8.6 K/UL (4.5-11.0)
[2022-02-18 07:43] LABS: BUN/CREATININE RATIO 44 (0-10)
--- NOTE | 2022-02-18 08:30 | NUR ---
DR. FIGUEROA NOTIFIED IN PERSON OF PATIENTS CRITICAL POTASSIUM RESULT OF 5.5. NO NEW ORDERS AT THIS TIME.
--- NOTE | 2022-02-20 04:34 | NUR ---
RIGHT FOOT DRESSING CHANGED PER ORDERS. PATIENT TOLERATED PROCEDURE WELL AFTER PRE-MEDICATION WITH MORPHINE ORDERED.
[2022-02-20 07:41] LABS: HEMOGLOBIN 11.2 gm/dl (12.3-15.3); RED BLOOD COUNT 4.12 M/UL (4.00-5.10); WHITE BLOOD COUNT 8.5 K/UL (4.5-11.0)
[2022-02-21 06:20] LABS: HEMOGLOBIN 12.8 gm/dl (12.3-15.3); RED BLOOD COUNT 4.48 M/UL (4.00-5.10); WHITE BLOOD COUNT 5.3 K/UL (4.5-11.0)
[2022-02-22 07:31] LABS: HEMOGLOBIN 10.9 gm/dl (12.3-15.3)
[2022-02-22 07:33] LABS: RED BLOOD COUNT 3.98 M/UL (4.00-5.10); WHITE BLOOD COUNT 8.3 K/UL (4.5-11.0)
[2022-02-23 06:39] LABS: HEMOGLOBIN 10.9 gm/dl (12.3-15.3); RED BLOOD COUNT 3.9 M/UL (4.00-5.10); WHITE BLOOD COUNT 8.3 K/UL (4.5-11.0)
[2022-02-23 06:54] LABS: BUN/CREATININE RATIO 41 (0-10)
[2022-02-24 10:46] LABS: BUN/CREATININE RATIO 32 (0-10)
[2022-02-24 10:47] LABS: HEMOGLOBIN 11.1 gm/dl (12.3-15.3); RED BLOOD COUNT 3.95 M/UL (4.00-5.10); WHITE BLOOD COUNT 7.2 K/UL (4.5-11.0)
[2022-02-25 05:38] LABS: HEMOGLOBIN 10.9 gm/dl (12.3-15.3); RED BLOOD COUNT 3.91 M/UL (4.00-5.10); WHITE BLOOD COUNT 6.7 K/UL (4.5-11.0)
[2022-02-25 05:58] LABS: BUN/CREATININE RATIO 29 (0-10)
[2022-02-25] MEDS ORDERED: PROTONIX 40 MG40 M1 PO (11:17)
[2022-02-25] MEDS ORDERED: PERCOCET 10-321 EACH PO (11:17)
[2022-02-25] MEDS ORDERED: HYSEPT473 ML TOP (11:17)
[2022-02-25] MEDS ORDERED: PREGABALIN75 MG PO (11:17)
[2022-02-25] MEDS ORDERED: HYDROXYZINE PAM25 MG PO (11:17)
[2022-02-25] MEDS ORDERED: TAB-A-VITE TA400 MC1 PO (11:17)
[2022-02-25] MEDS ORDERED: CHRONULAC20 GM/30 M PO (11:17)
== END 2022-02-25 15:48 | disposition home health service (06) | DRG 638 ==
LOC: ER1 09:26 → MED SURG 4 16:28 → CDU 16:28 → MED SURG 4 20:27
PROVIDERS: Internal Medicine; Physician Assistant; ADMIT Internal Medicine
DX: E11.65 Type 2 diabetes mellitus with hyperglycemia (principal); F11.20 Opioid dependence, uncomplicated; M86.671 Other chronic osteomyelitis, right ankle and foot; K52.1 Toxic gastroenteritis and colitis; E11.69 Type 2 diabetes mellitus with other specified complication; E11.621 Type 2 diabetes mellitus with foot ulcer; I10 Essential (primary) hypertension; L97.519 Non-pressure chronic ulcer of other part of right foot with unspecified severity; K21.9 Gastro-esophageal reflux disease without esophagitis; E66.01 Morbid (severe) obesity due to excess calories; Z96.651 Presence of right artificial knee joint; M10.9 Gout, unspecified; G89.4 Chronic pain syndrome; Z98.51 Tubal ligation status; E11.40 Type 2 diabetes mellitus with diabetic neuropathy, unspecified; E88.09 Other disorders of plasma-protein metabolism, not elsewhere classified; E87.5 Hyperkalemia; Z83.3 Family history of diabetes mellitus; Z91.14 Patient's other noncompliance with medication regimen; Z79.899 Other long term (current) drug therapy; Z82.49 Family history of ischemic heart disease and other diseases of the circulatory system; Z90.49 Acquired absence of other specified parts of digestive tract; Z79.82 Long term (current) use of aspirin; Z88.8 Allergy status to other drugs, medicaments and biological substances; Z98.890 Other specified postprocedural states; Z68.38 Body mass index [BMI] 38.0-38.9, adult; T50.3X5A Adverse effect of electrolytic, caloric and water-balance agents, initial encounter
CPT/HCPCS: 0240U; 36415; 36600; 71045; 73630; 80048; 80053; 80202; 81001; 82803; 82962; 83605; 83735; 84132; 85025; 85027; 85652; 86140; 87040; 96374; 96375; 96376; 97110-GP-CQ; 97116-GP-CQ; 97161; 97530-GP-CQ; 99285; C1751; C9113; G0378; J0696; J1335; J1650; J2270; J2405; J3370; J7070; Q0177; Q9967